=== PATIENT | male | born 1935 | race Caucasian/White ===

== ENCOUNTER 2016-12-20 20:16 | Inpatient (IN) | payer OTHER ==
[~2016-12-20] VITALS: Ht 180.3 cm; Wt 74.8 kg
--- NOTE | ~2016-12-20 | H ---
[facility] [place] [address] HISTORY AND PHYSICAL Name: AILEEN GARNICA Room #: 312-P [facility] IN M.R.#: [id number] Admission: 12/20/16 Attend Phys: Linwood Taylor Discharge: Date of : 31 Report #: [id number] THIS REPORT FOR: //name// CC: Maurice Meehan DATE OF SERVICE: 12/21/2016 CHIEF COMPLAINT: Shortness of breath. HISTORY OF PRESENT ILLNESS: The patient is an 81-year-old gentleman with COPD, who came back to the Emergency Room with a several day history of shortness of breath. Symptoms began about 5 or 7 days ago. He went to the Emergency Room this past Sunday and was diagnosed with COPD exacerbation. He was given antibiotics and discharged home. He said the last 2 days, he has been very lethargic and said he has been "sleeping 20 hours a day." He normally wears 3 liters of oxygen at home, but had increased it to about 4 liters with a mild exertion. He reports using his nebulizer every 4 hours; however, things did not improve and therefore, he returned to the Emergency Room yesterday and has been admitted. PAST MEDICAL HISTORY: COPD, prostate cancer, remote coronary artery disease with remote history of cardiac stent, hypertension. PAST SURGICAL HISTORY: As above. FAMILY HISTORY: Noncontributory. SOCIAL HISTORY: No current alcohol or tobacco use. ALLERGIES: PENICILLIN, IODINE, CODEINE. He says PREDNISONE caused itching. MEDICATIONS: DuoNeb, Mucinex, Flonase, azithromycin, lisinopril, Advair, Zocor, aspirin, potassium, Lasix. REVIEW OF SYSTEMS: He denies headache, chest pain, shortness of breath, abdominal pain, dysuria, myalgias, syncope, fall. PHYSICAL EXAMINATION: VITAL SIGNS: Temperature 36.3, pulse 69, respirations 20, blood pressure 140/65, O2 sat 97% on 3 liters nasal cannula. GENERAL: He is awake and alert, in no distress. HEAD AND NECK: Unremarkable. LUNGS: Clear with no wheezing. HEART: Regular, without murmur. ABDOMEN: Soft, normoactive bowel sounds. EXTREMITIES: No edema. [facility] [address] [place] [address] HISTORY AND PHYSICAL Name: AILEEN GARNICA Room #: 312-P [facility] IN [facility].#: [id number] Admission: 12/20/16 Attend Phys: Linwood Taylor Discharge: Date of : 33 Report #: [id number] LABORATORY DATA: Reviewed electronically. Chest x-ray showed some atelectasis. ASSESSMENT: 1. Chronic obstructive pulmonary disease exacerbation. 2. Hypertension. 3. Coronary artery disease. PLAN: I will continue his medications from home and exception of adjusting his potassium, antibiotics, steroids, nebulized and pulmonary treatments to continue with physical therapy, Lovenox for DVT prophylaxis. <ELECTRONICALLY SIGNED> By: Edilson Godinez MD 12/22/16 1019 1031 Edilson Godinez MD /tan
--- NOTE | ~2016-12-20 | EKG ---
[address] [address] ELECTROCARDIOGRAM REPORT Name: AILEEN GARNICA Room #: 312-P ADM IN M.R.#: [id number] Admission: 12/20/16 Attend Phys: Linwood Taylor Discharge: Date of : 31 Report #: [id number] THIS REPORT FOR: //name// 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 : 1935 Requested By: Josh Riojas Order Number: [id number] MD: Brett Grossman Measurements Intervals [place] Rate: 69 P: 76 MO: 213 QRS: 85 QRSD: 110 T: 60 QT: 413 QTc: 443 Interpretive Statements Sinus rhythm Borderline prolonged [place] interval RSR' in V1 or V2, probably normal variant Compared to ECG 12/20/2016 21:01:16 Sinus rhythm has replaced atrial flutter Electronically Signed On 12-25-2016 9:10:51 CDT by Brett Grossman [email or web address] <ELECTRONICALLY SIGNED> By: Brett Grossman MD, [facility] 12/25/16 0910 0819 0819 Brett Grossman MD, [facility] /EPI
--- NOTE | ~2016-12-20 | D ---
[facility] [place] [address] DISCHARGE SUMMARY Name: AILEEN GARNICA Room #: 312-P [facility] IN M.R.#: [id number] Admission: 12/20/16 Attend Phys: Linwood Taylor Discharge: 12/25/16 Date of : 33 Report #: [id number] THIS REPORT FOR: //name// CC: Maurice Meehan FINAL DIAGNOSES: 1. Acute exacerbation of chronic obstructive pulmonary disease. 2. Acute bronchitis. 3. Paroxysmal atrial fibrillation. 4. Hypertension. 5. Senile debility. HOSPITAL COURSE: The patient was admitted with cough, congestion and shortness of breath. Initial working diagnosis was pneumonia. However, his chest x-ray really did not show significant infiltrate. He was treated for exacerbation of COPD and acute bronchitis. Steroids, nebulized treatments and antibiotics were ordered. He made slow and steady improvement. I offered post-acute rehabilitation care, which he declined. He worked with physical therapy. On the , he developed paroxysmal atrial fibrillation. He was seen by Dr. Riojas. Toprol was added and then he was converted to Xarelto. He had no other interval complication. Plan was for him to discontinue aspirin. PHYSICAL EXAMINATION: GENERAL: On the day of discharge, he was awake and alert, in no distress. VITAL SIGNS: Stable, telemetry was revealing sinus rhythm. LUNGS: Distant, but no wheezing. HEART: Regular. ABDOMEN: Soft, normoactive bowel sounds. EXTREMITIES: No edema. DISPOSITION: To be discharged to home with diet and activity as tolerated. He will resume all home medications plus Toprol-XL 25 mg a day, Xarelto 20 mg a day, Zithromax for 5 more days, a slow dexamethasone taper to a daily dose and he is to discontinue aspirin. Follow up with Dr. Meehan in 2-4 weeks, Dr. Riojas in a month, and Dr. Mendoza for pulmonary in a month. <ELECTRONICALLY SIGNED> By: Edilson Godinez MD 12/26/16 0900 0859 0926 Edilson Godinez MD /nt
--- NOTE | ~2016-12-20 | EKG ---
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 : 1935 Requested By: Edilson Godinez Order Number: [id number] MD: Brett Grossman Measurements Intervals [place] Rate: 122 P: [place]: QRS: 93 QRSD: 107 T: -46 QT: 328 QTc: 468 Interpretive Statements Atrial flutter with a rapid ventricular response Ventricular premature complex Right ventricular conduction delay Nonspecific ST and T wave abnormality Baseline wander in lead(s) V2 Compared to ECG 12/20/2016 21:01:16 Atrial flutter is now present Ventricular premature complex(es) now present Electronically Signed On 12-24-2016 15:02:12 CDT by Brett Grossman [email or web address] <ELECTRONICALLY SIGNED> By: Brett Grossman MD, [facility] 12/24/16 1502 1003 1003 Brett Grossman MD, [facility] /EPI
--- NOTE | ~2016-12-20 | HC ---
[facility] [place] [address] CONSULTATION Name: AILEEN GARNICA Room #: 312-P [facility] IN ..#: [id number] Admission: 12/20/16 Attend Phys: Linwood Taylor Discharge: Date of : 33 Report #: [id number] THIS REPORT FOR: //name// CC: Maurice Meehan HISTORY OF PRESENT ILLNESS: The patient is an 81-year-old male patient of Dr. Carlo Meehan, admitted by Dr. Meehan and Dr. Godinez for chronic obstructive pulmonary disease exacerbation and shortness of breath. He apparently had had a couple of visits to the emergency room prior to his admission. Longstanding COPD with tobacco use, but he quit 2 or 3 years ago. I am asked to evaluate for what he had was some paroxysmal AFib with a rapid ventricular response this morning of 140s. There was a period of bigeminy prior to that. He was asymptomatic with this AFib. He has currently converted back to sinus rhythm. He has not had significant or elevated history of chest pain or pressure, apparently has not seen Cardiology for some time. CURRENT MEDICATIONS: Cefuroxime 500 b.i.d., Zithromax p.o., famciclovir, aspirin, lisinopril 2.5, enoxaparin 40. We will go full dose on the enoxaparin because of the atrial fibrillation now for true therapeutic anticoagulation, Lasix p.o. 40, dexamethasone 2 t.i.d. His home medications are DuoNeb, Mucinex, Zithromax, lisinopril, Advil, Zocor, aspirin, potassium, Lasix. PAST MEDICAL HISTORY: Positive for coronary artery disease. He showed me stent cards, 3 circumflex stents placed in 2004 and then an acute occlusion in the same vessel in 2007 with one Cypher drug-eluting stent placed 2.5 mm stent by 13, I believe. He has had no recent stress testing, he says. He denies some questionable chest pressure at times, but mostly this is a pulmonary issue. No significant surgical history except for the stent placement, hypertension, hypercholesterolemia, prostate cancer, COPD. ALLERGIES: CODEINE, IODINE, PENICILLIN, and PREDNISONE, although I might question that since he is on dexamethasone. 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 He has been single his whole life. He has a significant other he lives with, quit tobacco 3 years ago. No significant alcohol intake. FAMILY HISTORY: Negative for premature coronary disease. REVIEW OF SYSTEMS: Negative except for some occasional nocturia. LABORATORY DATA: Potassium 4.5. Creatinine 0.8. Total protein 7.4. Troponin is negative, proBNP 496. H 12.4 and 36.6, white count 9000 and platelets 178. Chest x-ray shows air trapping, focal areas of atelectasis in right middle lobe, minor fissure, otherwise no new infiltrate or pneumothorax was noted. That was today's x-ray. [address] [address] CONSULTATION Name: AILEEN GARNICA Room #: 312-P ADM IN M.R.#: [id number] Admission: 12/20/16 Attend Phys: Linwood Taylor Discharge: Date of : 33 Report #: [id number] PHYSICAL EXAMINATION: GENERAL: He is pleasant and alert. VITAL SIGNS: Blood pressure 110/75, currently pulse is 70s and sinus. He did have some AFib 140s for a short period of time, spontaneously converted. HEENT: Eyes reveal xanthelasmas. Pharynx is clear. NECK: Shows preserved upstrokes without JVD or bruits. LUNGS: Prolonged expiratory phase, decreased excursion. CARDIOVASCULAR: Distant heart tones, S1, S2. ABDOMEN: Slightly protuberant, nontender. EXTREMITIES: Reveal trace of nonpitting edema. NEUROLOGIC: Nonfocal. SKIN: Warm and dry without xanthoma or ulcer. MUSCULOSKELETAL: Generalized arthritic changes. I did not ambulate him. ASSESSMENT: 1. Paroxysmal atrial fibrillation with rapid ventricular response, asymptomatic. 2. Coronary artery disease with history of stents times 4, Cypher, to the circumflex, 2004 and 2007. 3. Hypertension. 4. Hypercholesterolemia. 5. Chronic obstructive pulmonary disease exacerbation. 6. Degenerative joint disease. 7. History of prostate cancer. RECOMMENDATIONS AND PLAN: I would restart his statin. I would check lipids. We will check echo Doppler on Sunday morning. He will need anticoagulation, probably long-term, possibly a novel agent, but I would go Lovenox currently mg/kg subq b.i.d. with normal renal function. We will use a selective beta steffany currently, Toprol 50. If we have recurrence, one would consider amiodarone addition. I will repeat EKG in the morning. I will follow with you. Thank you for asking me to assist in the care of this patient. <ELECTRONICALLY SIGNED> By: Josh Riojas MD, FACC 12/25/16 0815 1248 99 Josh Riojas MD, FACC /nt
--- NOTE | ~2016-12-20 | EKG ---
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 Editor: [id number] : 1935 Requested By: Oscar Jordan Order Number: [id number] MD: Brett Grossman Measurements Intervals [place] Rate: 66 P: 84 ND: 216 QRS: 86 QRSD: 106 T: 60 QT: 399 QTc: 418 Interpretive Statements Sinus rhythm Borderline prolonged ND interval RSR' in V1 or V2, probably normal variant Compared to ECG 12/16/2016 11:42:10 premature ventricular complexes no longer present Electronically Signed On 12-21-2016 8:58:47 CDT by Brett Grossman [email or web address] <ELECTRONICALLY SIGNED> By: Brett Grossman MD, [facility] 12/21/16 0858 00 00 Brett Grossman MD, [facility] /EPI
[~2016-12-20 20:16] MED LIST: ADVAIR 500-501 EACH INH; ALBUTEROL2.5 MG/3 M INH; AZITHROMYCIN 2250 MG PO; DEXAMETHASONE 22 M1 PO; DEXAMETHASONE 22 MG GT; DUONEB 2.5-0.5 M3 ML INH; FLONASE 0.05%50 MCG NASAL; LEVAQUIN 500 M500 M1 PO; LEVAQUIN 500 M500 M2; LISINOPRIL2.5 M1 PO; MUCINEX TA600 MG/TA1 PO; SPIRIVA18 MCG
[2016-12-20 20:17] VITALS: BP 132/102
[2016-12-20 21:32] LABS: ABSOLUTE NEUTROPHILS 5.5 thou/uL (1.4-8.2); BASOPHILS 0.8 % (0.0-2.0); EOSINOPHILS 3.1 % (0.0-3.0); HEMOGLOBIN 14.4 gm/dL (14.0-18.0); LYMPHOCYTES 14.6 % (24.0-44.0); MCH 30.9 pg (26.0-34.0); MCHC 33.4 g/dL (28.0-37.0); MCV 92.6 fL (80.0-100.0); MONOCYTES 7.7 % (1.0-8.0); PLATELET COUNT 242 thou/uL (150-400); POLYS 73.8 % (36.0-66.0); RBC 4.64 mil/uL (4.50-6.00); RDW 15.3 % (10.5-14.5); WBC 7.4 thou/uL (4.0-11.0)
[2016-12-20 21:33] LABS: MANUAL DIFF NO
[2016-12-20 21:37] LABS: CALCIUM 9.5 mg/dL (8.5-10.1); CREATININE 0.8 mg/dL (0.7-1.3); POTASSIUM 5.2 mmol/L (3.5-5.1)
[2016-12-20 21:46] LABS: APTT 21.2 Seconds (24.5-32.8)
[2016-12-20 21:55] LABS: ALBUMIN 3.3 g/dL (3.4-5.0); CK-MB MASS 2.3 ng/mL (<0.5-3.6); MAGNESIUM 1.9 mg/dL (1.8-2.4); TOTAL BILIRUBIN 0.6 mg/dL (<0.1-1.0); TOTAL PROTEIN 7.4 g/dL (6.4-8.2); TROPONIN-I 0.04 ng/mL (<0.04-0.07)
[2016-12-20 21:57] LABS: ABG SAMPLE TYPE ARTERIAL; BE(vivo) 0 mmol/L (-2 to +3); LACTATE 1.07 mmol/L (0.5-2.0); O2(CT) 19.2 mL/dL (15.0-23.0); O2Hb 96.2 % (92.0-98.0); PCO2 47.5 mmHg (35.0-45.0); PO2 96.5 mmHg (80.0-100.0); STICK SITE L.RADIAL; pH 7.356 (7.360-7.450); tCO2 27.4 mmol/L (24.0-30.0)
[2016-12-21] VITALS (7 sets, daily range): BP systolic 115–154; BP diastolic 55–82
[2016-12-21] MEDS ORDERED: FLONASE 0.05%50 MCG NASAL (01:33)
[2016-12-21] MEDS ORDERED: MUCINEX TA600 MG/TA2 PO (01:35)
[2016-12-21] MEDS ORDERED: DUONEB 2.5-0.5 M3 ML INH (01:37)
[2016-12-21] MEDS ORDERED: SIMVASTATIN40 MG PO (01:42)
[2016-12-21] MEDS ORDERED: ASPIR 8181 M1 PO (01:43)
[2016-12-21] MEDS ORDERED: KLOR-CON 1010 MEQ PO (01:44)
[2016-12-21] MEDS ORDERED: LASIX 40 MG TAB40 MG PO (01:46)
[2016-12-22 04:33] VITALS: BP 104/63
[2016-12-22 06:15] LABS: CALCIUM 9.5 mg/dL (8.5-10.1); CREATININE 0.9 mg/dL (0.7-1.3); POTASSIUM 4.4 mmol/L (3.5-5.1)
[2016-12-22 09:40] VITALS: BP 146/48
[2016-12-22 16:07] VITALS: BP 107/58
[2016-12-22 20:40] VITALS: BP 120/61
[2016-12-23 04:50] VITALS: BP 103/52
[2016-12-23 05:19] LABS: HEMATOCRIT 36.6 % (42.0-52.0); MCH 30.6 pg (26.0-34.0); MCHC 33.8 g/dL (28.0-37.0); MCV 90.6 fL (80.0-100.0); RBC 4.04 mil/uL (4.50-6.00)
[2016-12-23 05:29] LABS: HEMOGLOBIN 12.4 gm/dL (14.0-18.0)
[2016-12-23 05:30] LABS: CREATININE 0.8 mg/dL (0.7-1.3); POTASSIUM 4.5 mmol/L (3.5-5.1)
[2016-12-23 08:00] VITALS: BP 110/75
[2016-12-23] MEDS ORDERED: XALATAN2.5 M1 OPHTHALMIC (14:27)
[2016-12-23 16:00] VITALS: BP 88/48
[2016-12-23] MEDS ORDERED: COMBIVENT RESPIM4 GM IH (18:22)
[2016-12-23 20:00] VITALS: BP 111/59
[2016-12-24 04:00] VITALS: BP 120/49
[2016-12-24 08:00] VITALS: BP 120/58
[2016-12-24 16:00] VITALS: BP 119/71
[2016-12-24 19:43] VITALS: BP 113/53
[2016-12-25 04:27] VITALS: BP 122/64
[2016-12-25 06:59] LABS: HEMATOCRIT 39.1 % (42.0-52.0); HEMOGLOBIN 12.9 gm/dL (14.0-18.0); MCH 30.2 pg (26.0-34.0); MCHC 33.1 g/dL (28.0-37.0); MCV 91.3 fL (80.0-100.0); RBC 4.28 mil/uL (4.50-6.00); RDW 15.3 % (10.5-14.5); WBC 12.4 thou/uL (4.0-11.0)
[2016-12-25 07:09] LABS: CALCIUM 8.9 mg/dL (8.5-10.1); CREATININE 0.9 mg/dL (0.7-1.3); POTASSIUM 4.7 mmol/L (3.5-5.1)
[2016-12-25] MEDS ORDERED: AZITHROMYCIN 2250 MG PO (08:19)
[2016-12-25] MEDS ORDERED: METOPROLOL SUCC25 M1 PO (08:20)
[2016-12-25] MEDS ORDERED: XARELTO20 MG PO (08:20)
[2016-12-25] MEDS ORDERED: DEXAMETHASONE 22 M1 PO (08:21)
[2016-12-25 08:34] VITALS: BP 132/81
[2016-12-25 10:27] VITALS: BP 132/81
== END 2016-12-25 19:00 | disposition home or self-care (01) | DRG 189 ==
LOC: ER 20:16 → EROBS 22:45 → 3N 22:45
PROVIDERS: Emergency Medicine; Internal Medicine Geriatric Medicine
DX: J96.20 Acute and chronic respiratory failure, unspecified whether with hypoxia or hypercapnia (principal); J44.1 Chronic obstructive pulmonary disease with (acute) exacerbation; J44.0 Chronic obstructive pulmonary disease with (acute) lower respiratory infection; I25.10 Atherosclerotic heart disease of native coronary artery without angina pectoris; I10 Essential (primary) hypertension; E78.00 Pure hypercholesterolemia, unspecified; I48.0 Paroxysmal atrial fibrillation; M19.90 Unspecified osteoarthritis, unspecified site; R54 Age-related physical debility; J20.9 Acute bronchitis, unspecified; K12.1 Other forms of stomatitis; Z95.5 Presence of coronary angioplasty implant and graft; Z88.6 Allergy status to analgesic agent; Z88.0 Allergy status to penicillin; Z88.8 Allergy status to other drugs, medicaments and biological substances; Z85.46 Personal history of malignant neoplasm of prostate; Z91.041 Radiographic dye allergy status; Z87.891 Personal history of nicotine dependence
CPT/HCPCS: 10096

== ENCOUNTER 2017-01-09 22:22 | Inpatient (IN) | payer OTHER ==
[~2017-01-09] VITALS: Ht 27.9 cm; Wt 77.6 kg
--- NOTE | ~2017-01-09 | EKG ---
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
--- NOTE | ~2017-01-09 | D ---
[facility] [place] [address] DISCHARGE SUMMARY Name: AILEEN GARNICA Room #: 301-I ADM IN M.R.#: [id number] Admission: 01/10/17 Attend Phys: Edilson Godinez MD Discharge: Date of : 33 Report #: [id number] THIS REPORT FOR: //name// CC: Maurice Godinez FINAL DIAGNOSES: 1. Chronic obstructive pulmonary disease exacerbation. 2. Paroxysmal atrial fibrillation. 3. Chronic vertebral compression fracture. HOSPITAL COURSE: The patient was admitted with weakness and shortness of breath. He had some fluid overload and was treated for COPD exacerbation and diuretics. He was complaining of back pain and x-rays showed chronic vertebral compression fractures. He was slow to make progress; however, he refused to consider skilled or rehabilitation efforts and wanted to go home. PHYSICAL EXAMINATION: On the day of discharge: GENERAL: He was awake and alert. VITAL SIGNS: Stable. CHEST: Distant but clear. HEART: . ABDOMEN: Soft, normoactive bowel sounds. EXTREMITIES: No edema. DISPOSITION: To be discharged to home. Diet and activity as tolerated. Med changes are Coreg 6.25 mg b.i.d., Lasix 40 mg daily as needed for edema, tramadol as needed for pain and he is to continue his inhalers, Mucinex, Xarelto. Follow up with Dr. Meehan in 2 weeks. He will have home health. <ELECTRONICALLY SIGNED> By: Edilson Godinez MD 01/16/17 1505 1031 1229 Edilson Godinez MD /tan
--- NOTE | ~2017-01-09 | 2DMMODE ---
[facility] [address] [place] [address] 2 D/M-MODE ECHOCARDIOGRAM Name: NAHUNAILEEN Joshi Room #: 301-I ADM IN [facility]#: [id number] Admission: 01/10/17 Attend Phys: Linwood Quezada Discharge: Date of : 31 Date of Service: 01/10/17 1535 Report #: [id number] THIS REPORT FOR: //name// APPROVED REPORT Study performed: 01/10/2017 12:49:26 EXAM: Comprehensive 2D, Doppler, and color-flow Echocardiogram Patient Location: In-Patient Room #: 301 Blood Pressure: 117/59 mmHg Other Information Study Quality: Technically Difficult Indications COPD CAD Hypertension/HDD 2D Dimensions RVDd: 31.97 mm LVEF(%): 71.96 (>50%) IVSd: 10.62 (7-11mm) LVOT Diam: 19.94 (18-24mm) LVDd: 29.40 mm PWd: 10.52 (7-11mm) Ascending Ao: 28.76 (22-36mm) LVDs: 17.72 (25-40mm) Aortic Root: 38.94 mm IVC: 14.00 mm Arriola's LVEF: 71.96 % Volumes Left Atrial Volume (Systole) Single Plane 4CH: 47.80 mL Single Plane 2CH: 35.22 mL LA ESV Index: 22.00 mL/m2 Aortic Valve AoV Peak Melo.: 2.83 m/s AO Peak Gr.: 32.14 mmHg LVOT Max P.88 mmHg AO Mean Gr.: 17.27 mmHg AO V2 Mean: 1.97 m/s LVOT Max V: 1.49 m/s AO V2 VTI: 50.48 cm EVA Vmax: 1.64 cm2 [facility] [place] [address] 2 D/M-MODE ECHOCARDIOGRAM Name: AILEEN GARNICA Room #: 301-I [facility] IN ..#: [id number] Admission: 01/10/17 Attend Phys: Linwood Quezada Discharge: Date of : 31 Date of Service: 01/10/17 1535 Report #: [id number] Vmax: 3.59 m/s AI Isabela: 2.20 m/s2 AI PHT: 472.79 ms Mitral Valve E/A Ratio: 0.5 MV Decel. Time: 268.98 ms MV E Max Melo.: 0.71 m/s MV A Melo.: 1.48 m/s MV PHT: 78.00 ms IVRT: 133.79 ms Pulmonary Valve PV Peak Melo.: 1.59 m/s PV Peak Gr.: 10.07 mmHg Pulmonary Vein P Vein S: 38.5 m/s P Vein A: 18.53 m/s P Vein D: 27.0 m/s P Vein A Dur.: 124.6 msec Tricuspid Valve TR Peak Melo.: 2.95 m/s RAP Estimate: 5.00 mmHg TR Peak Gr.: 34.86 mmHg Left Ventricle The left ventricle is normal size. There is normal LV segmental wall motion. Mild concentric left ventricular hypertrophy. Left ventricular systolic function is hyperdynamic. LVEF is 70%. Mild diastolic dysfunction is present (impaired relaxation pattern). Right Ventricle The right ventricle is normal size. The right ventricular systolic function is normal. Atria The left atrium size is normal. The right atrium size is normal. Aortic Valve Aortic valve leaflets are mildly sclerotic with decreased opening. Trace aortic regurgitation. Mild aortic stenosis. Mitral Valve The mitral valve is normal in structure. There is no mitral valve regurgitation noted. No evidence of mitral valve stenosis. [facility] [address] [place] [address] 2 D/M-MODE ECHOCARDIOGRAM Name: AILEEN GARNICA Room #: 301-I [facility] IN .R.#: [id number] Admission: 01/10/17 Attend Phys: Linwood Quezada Discharge: Date of : 31 Date of Service: 01/10/17 1535 Report #: [id number] Tricuspid Valve The tricuspid valve is normal in structure. Mild tricuspid regurgitation. Pulmonic Valve Pulmonic valve is not well visualized. Trace pulmonic regurgitation. Great Vessels The aortic root is normal in size. IVC is normal in size and collapses >50% with inspiration. Pericardium There is no pericardial effusion. There is no pleural effusion. <Conclusion> The left ventricle is normal size. Mild concentric left ventricular hypertrophy. Left ventricular systolic function is hyperdynamic. Mild diastolic dysfunction is present (impaired relaxation pattern). The right ventricle is normal size. The left atrium size is normal. Mild aortic stenosis. The mitral valve is normal in structure. Mild tricuspid regurgitation. <ELECTRONICALLY SIGNED> By: Gab Holguin MD 01/10/17 1535 1535 1535 Gab Holguin MD /INF
--- NOTE | ~2017-01-09 | H ---
[facility] [address] [place] [address] HISTORY AND PHYSICAL Name: AILEEN GARNICA Room #: 301-I ADM IN .R.#: [id number] Admission: 01/10/17 Attend Phys: Edilson Godinez MD Discharge: Date of : 33 Report #: [id number] THIS REPORT FOR: //name// CC: Maurice Godinez DATE OF SERVICE: 01/10/2017 CHIEF COMPLAINT: Weakness and shortness of breath. HISTORY OF PRESENT ILLNESS: The patient is an 81-year-old gentleman with multiple medical problems, came back to the Emergency Room with weakness and shortness of breath. He has just been hospitalized recently a couple of times for COPD exacerbation and prior to that, he was hospitalized at [facility]. He was feeling weak and was unable to stand or get up from his commode. He said it took him a couple of hours to come down the 2 flights of stairs from the third floor. card and come in the Emergency Room. He was unable to get up due to appointment yesterday afternoon. He reported a little bit of swelling in his feet and a little more shortness of breath. He denied any chest pain. He had a recent diagnosis of paroxysmal atrial fibrillation during last hospitalization and was started on Xarelto. PAST MEDICAL HISTORY: COPD with chronic O2 dependence at 3 liters nasal cannula, prostate cancer, paroxysmal atrial fibrillation, hypertension, coronary artery disease with prior history of cardiac stent. PAST SURGICAL HISTORY: As above. FAMILY HISTORY: Noncontributory. SOCIAL HISTORY: He lives at home with one of his sons. ALLERGIES: CODEINE, IODINE, PENICILLIN and PREDNISONE. MEDICATIONS: Lisinopril, Advair, Flonase nasal spray, Mucinex, DuoNeb, Zocor, potassium, Lasix. REVIEW OF SYSTEMS: He denies headache, chest pain, abdominal pain, nausea, vomiting, diarrhea, constipation, dysuria, syncope. Does report bruising on his abdominal wall from Lovenox injections on last admit. PHYSICAL EXAMINATION: VITAL SIGNS: Temperature 97.6, pulse 58, respirations 16, blood pressure 117/59, O2 sat 95% to 97% on 3 liters. GENERAL: He is awake and alert, in no distress. HEENT: Unremarkable. He uses pursed lip breathing with activity. [facility] [address] [place] [address] HISTORY AND PHYSICAL Name: AILEEN GARNICA Room #: 301-I [facility] IN .R.#: [id number] Admission: 01/10/17 Attend Phys: Edilson Godinez MD Discharge: Date of : 31 Report #: [id number] NECK: No JVD. LUNGS: Distant breath sounds, no wheezing. HEART: Regular, no murmur. ABDOMEN: Obese, soft, normoactive bowel sounds, bridging of abdominal wall. EXTREMITIES: No cyanosis or clubbing. There is 1+ pedal edema. NEUROLOGIC: Global strength 4/5 throughout. His chest x-rays suggested some possible loculated pleural effusion. His BNP was elevated. ASSESSMENT: 1. Acute on chronic diastolic congestive heart failure. 2. Paroxysmal atrial fibrillation. 3. Chronic obstructive pulmonary disease, O2 dependent. 4. Senile debility. PLAN: I will ask for an echocardiogram to establish his ejection fraction, Lasix to be restarted. He continues with Xarelto, which we will cover for DVT prophylaxis. Continue pulmonary respiratory treatments and physical therapy. He declines to consider rehabilitation skill and/or home health. <ELECTRONICALLY SIGNED> By: Edilson Godinez MD 01/11/17 1120 1307 1408 Edilson Godinez MD /nt
[~2017-01-09 22:22] MED LIST changes: +ASPIR 8181 M1 PO; +COMBIVENT RESPIM4 GM IH; +KLOR-CON 1010 MEQ PO; +LASIX 40 MG TAB40 MG PO; +METOPROLOL SUCC25 M1 PO; +MUCINEX TA600 MG/TA2 PO; +SIMVASTATIN40 MG PO; +XALATAN2.5 M1 OPHTHALMIC; +XARELTO20 MG PO
[2017-01-09 22:23] VITALS: BP 85/62
[2017-01-09 22:54] LABS: ABG SAMPLE TYPE ARTERIAL; BE(vivo) 3.4 mmol/L (-2 to +3); HCO3 28.1 mmol/L (22.0-26.0); LACTATE 1.42 mmol/L (0.5-2.0); O2(CT) 19.5 mL/dL (15.0-23.0); O2Hb 96.6 % (92.0-98.0); PCO2 42.7 mmHg (35.0-45.0); PO2 103.1 mmHg (80.0-100.0); STICK SITE L.BRACHIAL; pH 7.436 (7.360-7.450); sO2 97.9 % (92.0-98.0); tCO2 29.4 mmol/L (24.0-30.0)
[2017-01-09 23:24] LABS: HEMOGLOBIN 13.6 gm/dL (14.0-18.0); MCH 30.1 pg (26.0-34.0); MCHC 32.5 g/dL (28.0-37.0); MCV 92.8 fL (80.0-100.0); PLATELET COUNT 133 thou/uL (150-400); RBC 4.52 mil/uL (4.50-6.00); RDW 15.8 % (10.5-14.5); WBC 11.9 thou/uL (4.0-11.0)
[2017-01-09 23:32] LABS: CALCIUM 8.9 mg/dL (8.5-10.1); CREATININE 1.2 mg/dL (0.7-1.3); POTASSIUM 4.7 mmol/L (3.5-5.1)
[2017-01-09 23:34] LABS: MANUAL DIFF YES
[2017-01-10 00:06] LABS: ABSOLUTE NEUTROPHILS 10.2 thou/uL (1.4-8.2); TOTAL CELL COUNT 100
[2017-01-10 01:08] VITALS: BP 121/54
[2017-01-10 01:20] VITALS: BP 113/62
[2017-01-10] MEDS ORDERED: CARVEDILOL3.125 MG PO (02:04)
[2017-01-10] MEDS ORDERED: XARELTO20 MG PO ×2 (02:08→02:12)
[2017-01-10] MEDS ORDERED: COMBIVENT RESPIM4 GM IH ×2 (02:09→02:12)
[2017-01-10 07:15] VITALS: BP 117/59
[2017-01-10 19:42] VITALS: BP 150/72
[2017-01-11 04:19] VITALS: BP 128/63
[2017-01-11 05:46] LABS: HEMATOCRIT 39.8 % (42.0-52.0); HEMOGLOBIN 13.4 gm/dL (14.0-18.0); MCH 30.8 pg (26.0-34.0); MCHC 33.6 g/dL (28.0-37.0); MCV 91.5 fL (80.0-100.0); RBC 4.35 mil/uL (4.50-6.00); RDW 15.5 % (10.5-14.5); WBC 10.4 thou/uL (4.0-11.0)
[2017-01-11 05:59] LABS: CALCIUM 9.5 mg/dL (8.5-10.1); CREATININE 0.8 mg/dL (0.7-1.3); POTASSIUM 4.4 mmol/L (3.5-5.1)
[2017-01-11 07:19] VITALS: BP 132/54
[2017-01-11 16:24] VITALS: BP 140/65
[2017-01-11 20:12] VITALS: BP 130/69
[2017-01-12 06:03] LABS: CALCIUM 9.4 mg/dL (8.5-10.1); CREATININE 0.8 mg/dL (0.7-1.3); POTASSIUM 4.2 mmol/L (3.5-5.1)
[2017-01-12 07:43] VITALS: BP 153/64
[2017-01-12 15:11] VITALS: BP 136/79
[2017-01-12 18:17] VITALS: BP 122/66
[2017-01-12 19:30] VITALS: BP 110/87
[2017-01-13 03:10] VITALS: BP 110/63
[2017-01-13 09:09] VITALS: BP 107/61
[2017-01-13 17:38] VITALS: BP 112/60
[2017-01-13 19:30] VITALS: BP 118/61
[2017-01-14 00:01] VITALS: BP 107/57
[2017-01-14 03:30] VITALS: BP 109/61
[2017-01-14 17:47] VITALS: BP 124/63
[2017-01-14 19:44] VITALS: BP 132/56
[2017-01-15 04:16] VITALS: BP 109/52
[2017-01-15 08:35] VITALS: BP 123/51
[2017-01-15 16:08] VITALS: BP 123/51
[2017-01-15 19:55] VITALS: BP 122/57
[2017-01-16 03:42] VITALS: BP 119/58
[2017-01-16 07:48] LABS: ANION GAP < 0 mmol/L (7-16); BUN 19 mg/dL (7-18); CALCIUM 9.2 mg/dL (8.5-10.1); CHLORIDE 97 mmol/L (98-107); CO2 41 mmol/L (21-32); CREATININE 0.7 mg/dL (0.7-1.3); GLUCOSE 190 mg/dL (74-106); POTASSIUM 3.5 mmol/L (3.5-5.1); SODIUM 136 mmol/L (136-145)
[2017-01-16 08:07] VITALS: BP 112/52
[2017-01-16] MEDS ORDERED: TRAMADOL 50 MG50 MG PO (10:25)
[2017-01-16] MEDS ORDERED: MUCINEX TA600 MG/TA1 PO (10:25)
[2017-01-16] MEDS ORDERED: CARVEDILOL3.125 MG PO (10:25)
[2017-01-16] MEDS ORDERED: FLONASE 0.05%50 MCG NASAL (10:25)
[2017-01-16] MEDS ORDERED: SSD CREAM 1% 5050 GM TOP (10:26)
[2017-01-16] MEDS ORDERED: LASIX 40 MG TAB40 M2 PO (10:29)
[2017-01-16 10:45] VITALS: BP 123/51
[2017-01-16 11:38] VITALS: BP 123/51
[2017-01-16 17:06] VITALS: BP 125/66
== END 2017-01-16 21:00 | disposition home health service (06) | DRG 308 ==
LOC: ER 22:22 → EROBS 01-10 00:28 → 3N 01-10 00:28
PROVIDERS: Emergency Medicine; Internal Medicine Geriatric Medicine
DX: I48.0 Paroxysmal atrial fibrillation (principal); I50.33 Acute on chronic diastolic (congestive) heart failure; J44.1 Chronic obstructive pulmonary disease with (acute) exacerbation; M48.50XA Collapsed vertebra, not elsewhere classified, site unspecified, initial encounter for fracture; I11.0 Hypertensive heart disease with heart failure; J98.01 Acute bronchospasm; I25.10 Atherosclerotic heart disease of native coronary artery without angina pectoris; Z85.46 Personal history of malignant neoplasm of prostate; Z95.5 Presence of coronary angioplasty implant and graft; Z88.0 Allergy status to penicillin; Z88.6 Allergy status to analgesic agent; Z91.041 Radiographic dye allergy status; Z87.891 Personal history of nicotine dependence; Z99.81 Dependence on supplemental oxygen
CPT/HCPCS: 10096

== ENCOUNTER 2017-01-21 20:14 | Inpatient (IN) | payer OTHER ==
[~2017-01-21] VITALS: Ht 180.3 cm; Wt 78.9 kg
--- NOTE | ~2017-01-21 | H ---
[facility] [place] [address] HISTORY AND PHYSICAL Name: AILEEN GARNICA Room #: 446-P ADM IN M.R.#: [id number] Admission: 01/21/17 Attend Phys: Dottie Arroyo MD Discharge: Date of : 33 Report #: [id number] THIS REPORT FOR: //name// CC: Maurice Arroyo DATE OF SERVICE: 01/22/2017 CHIEF COMPLAINT: Shortness of breath. HISTORY OF PRESENT ILLNESS: The patient is an 81-year-old gentleman with COPD and CHF, came back to the Emergency Room with shortness of breath. He was just discharged from the hospital with very similar symptoms and has had several admissions over the last couple of months. He said at home, he just complained of being short of breath. He slept for 3 days and was weak. He has been talking about getting a stairlift installed in his house, but that has still not been done. He has refused home health, rehabs new referrals in the past. It is not clear whether he was taking his medication, he was discharged from the last hospital stay. He complained of nasal congestion, but did not use his Flonase that was given to him last admit. PAST MEDICAL HISTORY: COPD, prostate cancer, coronary artery disease with cardiac catheterization and stent previously, diastolic congestive heart failure, atrial fibrillation now on anticoagulation. PAST SURGICAL HISTORY: As above. FAMILY HISTORY: Noncontributory. SOCIAL HISTORY: Remote 50-hnav-lvld history of smoking, but none recently. No alcohol use. ALLERGIES: PENICILLIN, IODINE, CODEINE, PREDNISONE. MEDICATIONS: Xarelto 20 mg, tramadol, Mucinex, Flonase, Coreg 3.125 mg twice a day, Lasix 40 mg a day. REVIEW OF SYSTEMS: He denies headache, chest pain, shortness of breath, myalgias, syncope or fall. OBJECTIVE: VITAL SIGNS: Temperature 36.7, pulse 59, respirations 24, blood pressure 129/64, O2 sat 97% on 3 liters. GENERAL: He is awake and alert, in no distress. HEAD AND NECK: Unremarkable. LUNGS: Distant breath sounds, expiratory wheeze, very faint bilateral. [facility] [address] [address] HISTORY AND PHYSICAL Name: AILEEN GARNICA Room #: 446-P [facility].#: [id number] Admission: 01/21/17 Attend Phys: Dottie Arroyo MD Discharge: Date of : 33 Report #: [id number] HEART: Irregular. No murmur. ABDOMEN: Soft, normoactive bowel sounds. EXTREMITIES: 1+ pedal edema. NEUROLOGIC: Global strength 4/5 throughout. ASSESSMENT: 1. COPD. 2. Atrial fibrillation. 3. Chronic diastolic congestive heart failure. 4. Senile debility. PLAN: Continue medical treatment for now. Follow up on his chest x-ray. Again I have strongly recommended to him that he needs to follow recommendations at this point and pursue long term rehabilitation, so we can maintain some level of medical stability to stop the consistent return to ER hospital admissions, he will take it under consideration, but currently he has refusing this. Poor prognosis due to his underlying conditions and questionable compliance with medical recommendations. <ELECTRONICALLY SIGNED> By: Edilson Godinez MD 01/23/17 0935 1250 1340 Edilson Godinez MD /nt
--- NOTE | ~2017-01-21 | EKG ---
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: [id number] : 1935 Requested By: Dante Paz Order Number: [id number] MD: Brett Grossman Measurements Intervals [place] Rate: 64 P: 95 NM: 213 QRS: 89 QRSD: 114 T: 68 QT: 395 QTc: 408 Interpretive Statements Sinus rhythm Borderline prolonged NM interval Baseline wander in lead(s) V1 Compared to ECG 01/10/2017 00:29:51 Atrial premature complex(es) no longer present Electronically Signed On 01-22-2017 7:11:48 CDT by Brett Grossman [email or web address] <ELECTRONICALLY SIGNED> By: Brett Grossman MD, [facility] 01/22/17 0711 12 12 Brett Grossman MD, [facility] /EPI
--- NOTE | ~2017-01-21 | D ---
[facility] [place] [address] DISCHARGE SUMMARY Name: AILEEN GARNICA Room #: 446-P ADM IN M.R.#: [id number] Admission: 01/21/17 Attend Phys: Dottie Arroyo MD Discharge: Date of : 33 Report #: [id number] THIS REPORT FOR: //name// CC: Maurice Arroyo FINAL DIAGNOSES: 1. Chronic obstructive pulmonary disease exacerbation. 2. Paroxysmal atrial fibrillation. HOSPITAL COURSE: The patient was admitted with shortness of breath. He was treated with COPD exacerbation with steroids and his other home medications. He responded quickly to treatment. He has had multiple recent admissions. I spoke to him strongly, encouraged long term placement for medical stabilization. He flat out declined this; however, he said he would be willing to consider home health again this time. I reviewed his pattern of going home and then becoming weak and unable to move and then returning to the hospital rather quickly, and he has had multiple admissions. We have done everything we could do on this to get stabilization. I do not recall that he has been to the clinic since any of these discharges. Today, he seemed willing to consider a home health. PHYSICAL EXAMINATION: VITAL SIGNS: Stable. LUNGS: Clear and distant with no wheezing. HEART: Had regular sounds. ABDOMEN: Soft. EXTREMITIES: Showed no edema. DISPOSITION: He will be discharged to home with home health. Diet and activity as tolerated, resume all home medications plus dexamethasone 2 mg b.i.d. for 5 days and then 2 mg daily until he returns to the office. I have asked him to follow up with Dr. Meeahn in a week. PROGNOSIS: Poor due to his underlying lung disease. <ELECTRONICALLY SIGNED> By: Edilson Godinez MD 01/23/17 1420 1058 1111 Edilson Godinez MD /nt
[~2017-01-21 20:14] MED LIST changes: +CARVEDILOL3.125 MG PO; +LASIX 40 MG TAB40 M2 PO; +SSD CREAM 1% 5050 GM TOP; +TRAMADOL 50 MG50 MG PO
[2017-01-21 20:15] VITALS: BP 122/56
[2017-01-21 20:58] LABS: ABSOLUTE NEUTROPHILS 3.9 thou/uL (1.4-8.2); BASOPHILS 0.5 % (0.0-2.0); EOSINOPHILS 3.1 % (0.0-3.0); HEMATOCRIT 40.1 % (42.0-52.0); HEMOGLOBIN 13.6 gm/dL (14.0-18.0); LYMPHOCYTES 18.5 % (24.0-44.0); MCHC 33.9 g/dL (28.0-37.0); MCV 94.2 fL (80.0-100.0); MONOCYTES 7.4 % (1.0-8.0); PLATELET COUNT 211 thou/uL (150-400); POLYS 70.5 % (36.0-66.0); RBC 4.25 mil/uL (4.50-6.00); WBC 5.5 thou/uL (4.0-11.0)
[2017-01-21 21:01] LABS: MANUAL DIFF NO
[2017-01-21 21:09] LABS: ANION GAP 5 mmol/L (7-16); BUN 13 mg/dL (7-18); CALCIUM 9.2 mg/dL (8.5-10.1); CHLORIDE 104 mmol/L (98-107); CO2 31 mmol/L (21-32); GLUCOSE 198 mg/dL (74-106); POTASSIUM 4.3 mmol/L (3.5-5.1); SODIUM 140 mmol/L (136-145)
[2017-01-21 21:16] LABS: ALBUMIN 3.1 g/dL (3.4-5.0); ALKALINE PHOSPHATASE 86 U/L (46-116); MAGNESIUM 1.9 mg/dL (1.8-2.4); SGOT 26 U/L (15-37); SGPT 42 U/L (30-65); TOTAL BILIRUBIN 0.4 mg/dL (<0.1-1.0); TOTAL PROTEIN 6.6 g/dL (6.4-8.2); TROPONIN-I < 0.04 ng/mL (<0.04-0.07)
[2017-01-21 22:44] VITALS: BP 141/63
[2017-01-21 23:15] VITALS: BP 141/70
[2017-01-22 03:35] VITALS: BP 118/56
[2017-01-22 08:00] VITALS: BP 129/64
[2017-01-22 15:57] VITALS: BP 138/45
[2017-01-22 19:58] VITALS: BP 127/54
[2017-01-23 05:04] VITALS: BP 110/66
[2017-01-23 05:26] LABS: HEMATOCRIT 34.8 % (42.0-52.0); MCH 31.5 pg (26.0-34.0); MCHC 33.3 g/dL (28.0-37.0); MCV 94.5 fL (80.0-100.0); RBC 3.69 mil/uL (4.50-6.00); RDW 16.4 % (10.5-14.5); WBC 8.7 thou/uL (4.0-11.0)
[2017-01-23 05:28] LABS: HEMOGLOBIN 11.6 gm/dL (14.0-18.0)
[2017-01-23 05:45] LABS: CALCIUM 9.1 mg/dL (8.5-10.1); CREATININE 0.9 mg/dL (0.7-1.3); POTASSIUM 4.7 mmol/L (3.5-5.1)
[2017-01-23 09:30] VITALS: BP 110/61
[2017-01-23] MEDS ORDERED: LEVAQUIN 500 M500 M1 PO (09:36)
[2017-01-23] MEDS ORDERED: DEXAMETHASONE 22 M1 PO (09:37)
[2017-01-23] MEDS ORDERED: ACETAMINOPHEN325 M1 PO (09:37)
[2017-01-23 10:22] VITALS: BP 110/61
[2017-01-23 16:16] VITALS: BP 125/67
[2017-01-23 20:13] VITALS: BP 128/72
[2017-01-24 05:40] VITALS: BP 112/60
[2017-01-24 10:00] VITALS: BP 121/68
[2017-01-24 10:46] VITALS: BP 110/61
[2017-01-24 16:24] VITALS: BP 129/71
== END 2017-01-24 18:45 | disposition home health service (06) | DRG 190 ==
LOC: ER 20:14 → 4S 22:15 → EROBS 22:15 → 4S 22:51
PROVIDERS: Emergency Medicine; Internal Medicine Geriatric Medicine
DX: J44.0 Chronic obstructive pulmonary disease with (acute) lower respiratory infection (principal); J18.9 Pneumonia, unspecified organism; I50.32 Chronic diastolic (congestive) heart failure; E44.1 Mild protein-calorie malnutrition; J44.1 Chronic obstructive pulmonary disease with (acute) exacerbation; I48.0 Paroxysmal atrial fibrillation; R54 Age-related physical debility; Z95.5 Presence of coronary angioplasty implant and graft; Z88.0 Allergy status to penicillin; Z88.8 Allergy status to other drugs, medicaments and biological substances; Z88.6 Allergy status to analgesic agent; Z91.041 Radiographic dye allergy status; Z85.46 Personal history of malignant neoplasm of prostate; Z87.891 Personal history of nicotine dependence; Z79.899 Other long term (current) drug therapy; Z68.24 Body mass index [BMI] 24.0-24.9, adult
CPT/HCPCS: 10100

== ENCOUNTER 2017-02-07 20:03 | Emergency (ER) | payer OTHER ==
[~2017-02-07] VITALS: Ht 180.3 cm; Wt 77.1 kg
--- NOTE | ~2017-02-07 | EKG ---
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
[~2017-02-07 20:03] MED LIST changes: +ACETAMINOPHEN325 M1 PO
[2017-02-07] MEDS ORDERED: TOPROL XL25 MG PO (20:39)
[2017-02-07] MEDS ORDERED: DUONEB 2.5-0.5 M3 ML INH (20:39)
[2017-02-07] MEDS ORDERED: VENTOLIN HFA 1818 GM INH (20:39)
[2017-02-07] MEDS ORDERED: LISINOPRIL2.5 M1 PO (20:42)
[2017-02-07 21:20] LABS: ABSOLUTE NEUTROPHILS 8.1 thou/uL (1.4-8.2); BASOPHILS 0.7 % (0.0-2.0); EOSINOPHILS 0.6 % (0.0-3.0); HEMATOCRIT 35.4 % (42.0-52.0); HEMOGLOBIN 11.9 gm/dL (14.0-18.0); LYMPHOCYTES 10.7 % (24.0-44.0); MCH 31.5 pg (26.0-34.0); MCHC 33.8 g/dL (28.0-37.0); MCV 93.3 fL (80.0-100.0); MONOCYTES 6.7 % (1.0-8.0); PLATELET COUNT 183 thou/uL (150-400); POLYS 81.3 % (36.0-66.0); RBC 3.79 mil/uL (4.50-6.00); RDW 16.7 % (10.5-14.5); WBC 9.9 thou/uL (4.0-11.0)
[2017-02-07 21:25] LABS: MANUAL DIFF NO
[2017-02-07 21:30] LABS: ANION GAP 4 mmol/L (7-16); BUN 15 mg/dL (7-18); CALCIUM 9.1 mg/dL (8.5-10.1); CHLORIDE 104 mmol/L (98-107); CO2 34 mmol/L (21-32); CREATININE 0.8 mg/dL (0.7-1.3); GLUCOSE 159 mg/dL (74-106); POTASSIUM 4.6 mmol/L (3.5-5.1); SODIUM 142 mmol/L (136-145)
[2017-02-07 21:42] LABS: NT-PRO BRAIN NAT PEPTIDE 282 pg/mL (<300); TROPONIN-I < 0.04 ng/mL (<0.04-0.07)
[2017-02-07] MEDS ORDERED: LEVAQUIN 750 M750 MG PO (23:03)
[2017-02-07] MEDS ORDERED: LASIX 20 MG TAB20 MG PO (23:03)
== END 2017-02-08 00:41 | disposition home or self-care (01) ==
LOC: ER 20:03
PROVIDERS: Nurse Practitioner
DX: J44.1 Chronic obstructive pulmonary disease with (acute) exacerbation (principal); R60.9 Edema, unspecified; I10 Essential (primary) hypertension; Z88.5 Allergy status to narcotic agent; Z91.041 Radiographic dye allergy status; Z88.0 Allergy status to penicillin; Z88.6 Allergy status to analgesic agent; Z87.891 Personal history of nicotine dependence

== ENCOUNTER 2017-02-22 14:14 | Emergency (ER) | payer OTHER ==
[~2017-02-22] VITALS: Ht 180.3 cm; Wt 73.5 kg
--- NOTE | ~2017-02-22 | EKG ---
[address] [place] [address] ELECTROCARDIOGRAM REPORT Name: NAHUNAILEEN Joshi [id number] Admission: 02/22/17 Attend Phys: Discharge: 02/22/17 Date of : 33 Report #: [id number] THIS REPORT FOR: //name// [facility] ED Test Date: 2017-02-22 Test Time: 14:47:02 Pat Name: AILEEN GARNICA Department: Room: Gender: Hr Assistant: Bella Ayala : 1935 Requested By: Radhames Bacon Order Number: [id number] MD: Brett Grossman Measurements Intervals [place] Rate: 71 P: 81 LA: 200 QRS: 84 QRSD: 131 T: 62 QT: 383 QTc: 417 Interpretive Statements Sinus rhythm Right ventricular conduction delay Artifact in lead(s) I,II,III,aVR,aVL,aVF,V4,V5,V6 Compared to ECG 02/07/2017 20:32:09 No significant changes Electronically Signed On 02-24-2017 12:01:39 CDT by Brett Grossman [email or web address] <ELECTRONICALLY SIGNED> By: Brett Grossman MD, [facility] 02/24/17 1201 1447 1447 Brett Grossman MD, [facility] /EPI
[~2017-02-22 14:14] MED LIST changes: +LASIX 20 MG TAB20 MG PO; +LEVAQUIN 750 M750 MG PO; +TOPROL XL25 MG PO; +VENTOLIN HFA 1818 GM INH
[2017-02-22 14:51] LABS: HEMATOCRIT 39.4 % (42.0-52.0); MCH 31.2 pg (26.0-34.0); MCHC 32.9 g/dL (28.0-37.0); MCV 94.8 fL (80.0-100.0); RBC 4.16 mil/uL (4.50-6.00); RDW 16.9 % (10.5-14.5); WBC 7.5 thou/uL (4.0-11.0)
[2017-02-22 15:00] LABS: ANION GAP 8 mmol/L (7-16); BUN 15 mg/dL (7-18); CALCIUM 9.5 mg/dL (8.5-10.1); CHLORIDE 103 mmol/L (98-107); CO2 26 mmol/L (21-32); CREATININE 0.9 mg/dL (0.7-1.3); GLUCOSE 170 mg/dL (74-106); POTASSIUM 4.1 mmol/L (3.5-5.1); SODIUM 137 mmol/L (136-145)
[2017-02-22 15:08] LABS: TROPONIN-I < 0.04 ng/mL (<0.04-0.07)
[2017-02-22] MEDS ORDERED: DEXAMETHASONE2 MG PO (16:54)
== END 2017-02-22 16:54 | disposition home or self-care (01) ==
LOC: ER 14:14
PROVIDERS: Emergency Medicine
DX: J44.1 Chronic obstructive pulmonary disease with (acute) exacerbation (principal); I11.0 Hypertensive heart disease with heart failure; I50.9 Heart failure, unspecified; I48.91 Unspecified atrial fibrillation; Z85.46 Personal history of malignant neoplasm of prostate; Z88.5 Allergy status to narcotic agent; Z91.041 Radiographic dye allergy status; Z88.0 Allergy status to penicillin; Z88.6 Allergy status to analgesic agent; Z87.891 Personal history of nicotine dependence

== ENCOUNTER 2017-03-23 21:35 | Inpatient (IN) | payer OTHER ==
[~2017-03-23] VITALS: Ht 180.3 cm; Wt 78.5 kg
--- NOTE | ~2017-03-23 | EKG ---
[place] [address] [employer] [address] ELECTROCARDIOGRAM REPORT Name: AILEEN GARNICA Room #: 305-P ADM IN M.R.#: [id number] Admission: 03/24/17 Attend Phys: Dottie Arroyo MD Discharge: Date of : 33 Report #: [id number] THIS REPORT FOR: //name// [facility] ED Test Date: 2017-03-23 Test Time: 21:39:35 Pat Name: AILEEN GARNICA Department: Room: [facility] Gender: M Head Resident: MYLENE Foley : 1935 Requested By: Oscar Jordan Order Number: [id number] MD: Brett Grossman Measurements Intervals [place] Rate: 80 P: 108 IN: 200 QRS: 83 QRSD: 124 T: 46 QT: 371 QTc: 428 Interpretive Statements Sinus rhythm IVCD, consider atypical RBBB Baseline wander in lead(s) V2 Compared to ECG 02/22/2017 14:47:02 No significant changes Electronically Signed On 03-25-2017 10:51:14 CDT by Brett Grossman [email or web address] <ELECTRONICALLY SIGNED> By: Brett Grossman MD, [facility] 03/25/17 1051 2139 Brett Grossman MD, [facility] /EPI
--- NOTE | ~2017-03-23 | HC ---
[facility] [place] [address] CONSULTATION Name: AILEEN GARNICA Room #: 305-P [facility] IN ..#: [id number] Admission: 03/24/17 Attend Phys: Dottie Arroyo MD Discharge: 03/28/17 Date of : 33 Report #: [id number] THIS REPORT FOR: //name// CC: Maurice Arroyo DATE OF SERVICE: 03/24/2017 REASON FOR CONSULTATION: COPD. IMPRESSION: 1. Chronic obstructive pulmonary disease. The patient stable. 2. Accelerated hypertension. 3. Acute kidney injury. 4. Chronic atrial fibrillation. PLAN: Continue home aerosol, pulmonary toilet, DVT and ulcer prophylaxis per primary. We will follow briefly. HISTORY OF PRESENT ILLNESS: An 81-year-old male comes into the hospital, had not been feeling well, presented to the emergency room with complaint of fluctuating blood pressures. He denied cough, sputum production. He has his usual shortness of breath. PAST MEDICAL HISTORY: Includes 1. COPD. 2. Prostate cancer. 3. Coronary artery disease. 4. Chronic atrial fibrillation. 5. Chronic hypoxia. PAST SURGICAL HISTORY: Surgeries in the past include prostate and sinus. ALLERGIES: CODEINE, IODINE, PENICILLIN, and PREDNISONE. He believes he can take Solu-Medrol. MEDICATIONS: Include rivaroxaban, tramadol, Flonase, Lasix, Tylenol, guaifenesin, albuterol, Atrovent, lisinopril. SOCIAL HISTORY: Positive tobacco and oxygen dependent, quit smoking over a year ago. Negative ETOH abuse. REVIEW OF SYSTEMS: Positive for CHF. No nausea or vomiting. Did have episodes of feeling poorly and lightheaded. No hemoptysis, hematemesis, hematuria. No dysuria, no abdominal pain. [facility] [address] [place] [address] CONSULTATION Name: AILEEN GARNICA Room #: 305-P [facility] IN [facility].#: [id number] Admission: 03/24/17 Attend Phys: Dottie Arroyo MD Discharge: 03/28/17 Date of : 33 Report #: [id number] PHYSICAL EXAMINATION: VITAL SIGNS: Temperature 98.3, pulse 69, respirations 16, BP 108/67. EYES: Negative icterus. NECK: Negative JVD. LUNGS: Showed decreased breath sounds. No wheeze. HEART: Regular. ABDOMEN: Bowel sounds present. EXTREMITIES: Showed no edema. Chest x-ray showed no acute. LABORATORY DATA: A pH of 7.46, pCO2 of 41, pO2 of 40 on 4 liters. White count 7.7, hemoglobin 12.7, platelets 234. INR 1.4, BUN 23, creatinine 2.2. Lactate was 4, lactate this morning was 3.4. We will follow closely with you. I agree with hydration. <ELECTRONICALLY SIGNED> By: Ira Mendoza MD 04/02/17 1511 1535 193 Ira Mendoza MD /tan
--- NOTE | ~2017-03-23 | D ---
[facility] [place] [address] DISCHARGE SUMMARY Name: AILEEN GARNICA Room #: 305-P [facility] IN M.R.#: [id number] Admission: 03/24/17 Attend Phys: Dottie Arroyo MD Discharge: 03/28/17 Date of : 33 Report #: [id number] THIS REPORT FOR: //name// CC: Maurice Arroyo FINAL DIAGNOSES: 1. Chronic obstructive pulmonary disease exacerbation. 2. Atrial fibrillation. HOSPITAL COURSE: The patient was admitted with shortness of breath. He was treated for COPD exacerbation with steroids, nebulized treatments and antibiotic. Other home medications were continued. He had some mild prerenal status on his kidney function and was treated with IV fluids, which improved. He was treated for sinusitis as well with decongestion. PHYSICAL EXAMINATION: VITAL SIGNS: On the day of discharge, he was awake and alert, eating lunch. VITAL SIGNS: He was on 4 liters nasal cannula, which was his baseline with sats 95-97%. LUNGS: Distant, but clear with no wheezing. HEART: Irregular. No murmur. ABDOMEN: Soft, normoactive bowel sounds. EXTREMITIES: No edema. DISPOSITION: He will be discharged to home with home health. Diet and activity as tolerated. Resume all home medications plus dexamethasone 2 mg daily, pseudoephedrine 30 mg t.i.d., Ceftin for 5 days and follow up with Dr. Meehan as needed. <ELECTRONICALLY SIGNED> By: Edilson Godinez MD 03/30/17 0839 1241 1259 Edilson Godinez MD /nt
--- NOTE | ~2017-03-23 | H ---
[facility] [place] [address] HISTORY AND PHYSICAL Name: AILEEN GARNICA Room #: 305-P [facility] IN M.R.#: [id number] Admission: 03/24/17 Attend Phys: Dottie Arroyo MD Discharge: 03/28/17 Date of : 33 Report #: [id number] THIS REPORT FOR: //name// CC: Gerazoya Meehan Dottie Arroyo DATE OF SERVICE: 03/24/2017 ATTENDING PHYSICIAN: Dottie Arroyo MD. CHIEF COMPLAINT: Not feeling well and noticed that his blood pressure was staying elevated. HISTORY OF PRESENT ILLNESS: The patient is an 81-year-old gentleman with known history of hypertension and chronic atrial fibrillation, on Xarelto. The patient was noted to have fluctuating blood pressure. He presented to the emergency room and did complain of having some chest congestion. He was evaluated and noted to have elevated creatinine. The patient has been admitted to the hospital, started on IV fluids, and the labs from this morning are pending. PAST MEDICAL HISTORY: Significant for history of hypertension, chronic obstructive pulmonary disease, chronic hypoxia, atrial fibrillation, coronary artery disease with history of congestive heart failure, and prostate carcinoma. PAST SURGICAL HISTORY: Prostate surgery and sinus surgery. ALLERGIES: He is known to be allergic to CODEINE, IODINE, PENICILLIN, AND PREDNISONE. MEDICATIONS: Medications he was currently on were rivaroxaban 20 mg daily, tramadol 50 mg every 8 hours p.r.n., Flonase nasal spray, Coreg 3.125 mg twice a day, Lasix 40 mg p.r.n., Tylenol p.r.n., guaifenesin, albuterol and Atrovent inhaler 4 times a day, and lisinopril 2.5 mg daily. SOCIAL HISTORY: The patient lives alone and has been managing on his own. REVIEW OF SYSTEMS: The patient does report that he had a recent hospitalization at [facility] for congestive heart failure and was given steroids. He denied having any chest pain. No nausea or vomiting. No abdominal pain or any urinary symptoms. PHYSICAL EXAMINATION: GENERAL: Pleasant, elderly gentleman, who was sitting by the bedside, did not appear to be in any acute distress. He was awake, alert, oriented to place and person. He was using oxygen per nasal cannula. [address] [address] HISTORY AND PHYSICAL Name: AILEEN GARNICA Room #: [address] [place] [address].#: [id number] Admission: 03/24/17 Attend Phys: Dottie Arroyo MD Discharge: 03/28/17 Date of : 33 Report #: [id number] VITAL SIGNS: He was afebrile, his pulse was 76 per minute and irregular, respiratory rate of 16, and blood pressure was 110/70. HEENT: Skull was atraumatic. There was no pallor. No icterus. Mucosa was minimally dry. NECK: Supple. LUNGS: Clear to auscultation with no wheezing or crackles. There was diminished air entry bilaterally. HEART: First and second heart sound, which was irregular. There was no gallop. ABDOMEN: Soft, nontender. Bowel sounds normally heard. EXTREMITIES: Examination of the extremities did not reveal any edema. NEUROLOGIC: The patient was moving all 4 extremities equally and normally. There was no focal weakness noted. LABORATORY DATA: Labs on admission showed a pH of 7.4, pCO2 of 40, and pO2 of 40. Sodium was 142, potassium 4.4, chloride of 100, bicarbonate of 34, BUN of 23, creatinine of 2.2, and glucose was 189. Lactic acid was 4. Magnesium was 1.7. White cell count was 7.7, hemoglobin 12.7, hematocrit 38.1, and a platelet count of 234. Blood cultures were negative. ASSESSMENT: 1. Chronic obstructive pulmonary disease exacerbation. 2. Acute kidney injury, suspect secondary to dehydration. 3. Hypertension. 4. Chronic atrial fibrillation. 5. History of congestive heart failure. PLAN: The plan was to restart his home medications and continue on the IV fluids. We will hold the Lasix and check his lab work, BMP from this morning and a BMP for tomorrow. Continue the patient on his blood pressure medications, monitor his blood pressure closely, and increase activity as tolerated. <ELECTRONICALLY SIGNED> By: Dottie Arroyo MD 03/30/17 0946 0807 1035 Dottie Arroyo MD /nt
[~2017-03-23 21:35] MED LIST changes: +DEXAMETHASONE2 MG PO
[2017-03-23 21:36] VITALS: BP 91/57
[2017-03-23 23:06] LABS: ABSOLUTE NEUTROPHILS 5.9 thou/uL (1.4-8.2); BASOPHILS 0.5 % (0.0-2.0); EOSINOPHILS 1.6 % (0.0-3.0); HEMATOCRIT 38.1 % (42.0-52.0); HEMOGLOBIN 12.7 gm/dL (14.0-18.0); LYMPHOCYTES 12.8 % (24.0-44.0); MCH 31.9 pg (26.0-34.0); MCHC 33.4 g/dL (28.0-37.0); MCV 95.7 fL (80.0-100.0); MONOCYTES 8.3 % (1.0-8.0); PLATELET COUNT 234 thou/uL (150-400); POLYS 76.8 % (36.0-66.0); RBC 3.98 mil/uL (4.50-6.00); RDW 17.1 % (10.5-14.5); WBC 7.7 thou/uL (4.0-11.0)
[2017-03-23 23:09] LABS: ABG SAMPLE TYPE ARTERIAL; BE(vivo) 4.3 mmol/L (-2 to +3); HCO3 28.5 mmol/L (22.0-26.0); O2(CT) 14.1 mL/dL (15.0-23.0); PCO2 40.9 mmHg (35.0-45.0); pH 7.461 (7.360-7.450); sO2 78.5 % (92.0-98.0); tCO2 29.8 mmol/L (24.0-30.0)
[2017-03-23 23:10] LABS: PO2 40.4 mmHg (80.0-100.0); STICK SITE R.RADIAL
[2017-03-23 23:12] LABS: MANUAL DIFF NO
[2017-03-23 23:20] LABS: APTT 33.4 Seconds (24.5-32.8); CREATININE 2.2 mg/dL (0.7-1.3); INR 1.4; POTASSIUM 4.4 mmol/L (3.5-5.1); PROTIME 13.8 Seconds (9.3-11.4)
[2017-03-23 23:31] LABS: ALBUMIN 3.5 g/dL (3.4-5.0); MAGNESIUM 1.7 mg/dL (1.8-2.4); TOTAL BILIRUBIN 0.4 mg/dL (<0.1-1.0); TOTAL PROTEIN 7.6 g/dL (6.4-8.2); TROPONIN-I 0.04 ng/mL (<0.04-0.07)
[2017-03-24] VITALS (7 sets, daily range): BP systolic 104–132; BP diastolic 37–71
[2017-03-24] MEDS ORDERED: MUCUS ER600 M1 PO (02:27)
[2017-03-24 08:16] LABS: CREATININE 1.7 mg/dL (0.7-1.3); POTASSIUM 4.7 mmol/L (3.5-5.1)
[2017-03-25 03:25] VITALS: BP 121/73
[2017-03-25 07:35] LABS: HEMATOCRIT 30.9 % (42.0-52.0); MCH 32.1 pg (26.0-34.0); MCHC 33.6 g/dL (28.0-37.0); MCV 95.8 fL (80.0-100.0); PLATELET COUNT 188 thou/uL (150-400); RBC 3.23 mil/uL (4.50-6.00); RDW 16.4 % (10.5-14.5); WBC 8.3 thou/uL (4.0-11.0)
[2017-03-25 07:40] LABS: HEMOGLOBIN 10.4 gm/dL (14.0-18.0); MANUAL DIFF YES
[2017-03-25 07:50] LABS: CALCIUM 8.7 mg/dL (8.5-10.1); CREATININE 0.8 mg/dL (0.7-1.3); POTASSIUM 4.3 mmol/L (3.5-5.1)
[2017-03-25 08:10] VITALS: BP 104/53
[2017-03-25 10:03] LABS: ABSOLUTE NEUTROPHILS 7.5 thou/uL (1.4-8.2); TOTAL CELL COUNT 100
[2017-03-25 10:04] LABS: ANISOCYTOSIS 1+; POLYCHROMASIA OCCASIONAL
[2017-03-25 15:55] VITALS: BP 111/59
[2017-03-25 19:09] VITALS: BP 138/70
[2017-03-26 03:46] VITALS: BP 121/63
[2017-03-26 07:13] VITALS: BP 118/71
[2017-03-26 15:41] VITALS: BP 127/62
[2017-03-26 19:50] VITALS: BP 99/58
[2017-03-27 04:10] VITALS: BP 114/64
[2017-03-27 07:59] VITALS: BP 97/73
[2017-03-27 16:00] VITALS: BP 116/60
[2017-03-27 19:19] VITALS: BP 111/54
[2017-03-28 03:15] VITALS: BP 110/53
[2017-03-28] MEDS ORDERED: CEFUROXIME500 MG PO (12:23)
[2017-03-28] MEDS ORDERED: SUDOGEST30 MG PO (12:23)
[2017-03-28] MEDS ORDERED: DEXAMETHASONE 22 M1 PO (12:24)
[2017-03-28] MEDS ORDERED: NYSTATIN 1100000 U/M SW&SWALLOW (12:25)
[2017-03-28 12:48] VITALS: BP 138/71
[2017-03-28 14:28] VITALS: BP 138/71
== END 2017-03-28 16:59 | disposition home health service (06) | DRG 682 ==
LOC: ER 21:35 → 3N 03-24 00:13 → EROBS 03-24 00:13 → 3N 03-24 02:01
PROVIDERS: Emergency Medicine; Internal Medicine
DX: N17.0 Acute kidney failure with tubular necrosis (principal); J96.20 Acute and chronic respiratory failure, unspecified whether with hypoxia or hypercapnia; J44.1 Chronic obstructive pulmonary disease with (acute) exacerbation; E86.0 Dehydration; I11.0 Hypertensive heart disease with heart failure; I48.2 Chronic atrial fibrillation; I50.9 Heart failure, unspecified; R73.9 Hyperglycemia, unspecified; J32.9 Chronic sinusitis, unspecified; I25.10 Atherosclerotic heart disease of native coronary artery without angina pectoris; Z85.46 Personal history of malignant neoplasm of prostate; Z95.5 Presence of coronary angioplasty implant and graft; Z87.891 Personal history of nicotine dependence; Z79.01 Long term (current) use of anticoagulants; Z79.899 Other long term (current) drug therapy; Z99.81 Dependence on supplemental oxygen; Z88.8 Allergy status to other drugs, medicaments and biological substances; Z88.0 Allergy status to penicillin; Z91.041 Radiographic dye allergy status
CPT/HCPCS: 10096

== ENCOUNTER 2017-04-03 13:45 | Inpatient (IN) | payer OTHER ==
[~2017-04-03] VITALS: Ht 180.3 cm; Wt 76.7 kg
--- NOTE | ~2017-04-03 | EKG ---
[place] [address] 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: ILIANA : 1935 Requested By: Emerald Fan Order Number: [id number] MD: Brett Grossman Measurements Intervals [place] Rate: 154 P: [place]: QRS: 121 QRSD: 106 T: -54 QT: 290 QTc: 464 Interpretive Statements Atrial fibrillation with rapid V-rate Premature ventricular or aberrantly conducted supraventricular complexes baseline wander in lead(s) Compared to ECG 03/23/2017 21:39:35 Atrial fibrillation has replaced sinus rhythm Electronically Signed On 04-04-2017 18:17:06 CDT by Brett Grossman [email or web address] <ELECTRONICALLY SIGNED> By: Brett Grossman MD, [facility] 04/04/17 1817 1345 1345 Brett Grossman MD, [facility] /EPI
--- NOTE | ~2017-04-03 | 2DMMODE ---
[facility] [address] [place] [address] 2 D/M-MODE ECHOCARDIOGRAM Name: AILEEN GARNICA Room #: 217-P [facility] IN .R.#: [id number] Admission: 04/03/17 Attend Phys: Linwood Quezada Discharge: Date of : 31 Date of Service: 04/04/17 1414 Report #: [id number] THIS REPORT FOR: //name// APPROVED REPORT Study performed: 04/04/2017 10:39:28 EXAM: Comprehensive 2D, Doppler, and color-flow Echocardiogram Patient Location: Echo lab Room #: 217 Status: routine Other Information Study Quality: Adequate Indications Atrial Fibrillation Hx COPD, CAD, CHF 2D Dimensions RVDd: 37.07 mm LVEF(%): 68.57 (>50%) IVSd: 11.23 (7-11mm) LVOT Diam: 21.19 (18-24mm) LVDd: 44.22 mm PWd: 9.70 (7-11mm) LVDs: 27.35 (25-40mm) Aortic Root: 36.87 mm Arriola's LVEF: 68.57 % Volumes Left Atrial Volume (Systole) Single Plane 4CH: 44.64 mL Single Plane 2CH: 81.56 mL LA ESV Index: 39.00 mL/m2 Aortic Valve AoV Peak Melo.: 3.18 m/s AO Peak Gr.: 40.34 mmHg LVOT Max P.80 mmHg AO Mean Gr.: 22.84 mmHg AO V2 Mean: 2.32 m/s LVOT Max V: 1.20 m/s AO V2 VTI: 68.47 cm EVA Vmax: 1.34 cm2 Mitral Valve E/A Ratio: 0.7 MV Decel. Time: 181.07 ms MV E Max Melo.: 0.72 m/s [facility] [place] [address] 2 D/M-MODE ECHOCARDIOGRAM Name: NAHUNAILEEN Joshi Room #: 217-P [facility] IN .R.#: [id number] Admission: 04/03/17 Attend Phys: Linwood Quezada Discharge: Date of : 31 Date of Service: 04/04/17 1414 Report #: [id number] MV A Melo.: 1.08 m/s MV PHT: 52.51 ms IVRT: 110.73 ms Pulmonary Valve PV Peak Melo.: 1.19 m/s PV Peak Gr.: 5.69 mmHg Tricuspid Valve TR Peak Melo.: 2.88 m/s RAP Estimate: 5.00 mmHg TR Peak Gr.: 33.12 mmHg PA Pressure: 38.00 mmHg Left Ventricle The left ventricle is normal size. Borderline concentric left ventricular hypertrophy. The left ventricular systolic function is normal. The left ventricular ejection fraction is within the normal range. LVEF is 60-65%. Grade I - abnormal relaxation pattern. Right Ventricle The right ventricle is normal size. The right ventricular systolic function is normal. Atria Left atrium is dilated. The right atrium size is normal. Aortic Valve Aortic valve is calcified. Mild aortic regurgitation. There is moderate valvular aortic stenosis. Calculated aortic valve area is 1.3 cm2 with maximum pressure gradient of 40 mmHg and mean pressure gradient of 23 mmHg. Mitral Valve Mitral valve leaflets are calcified. Trace mitral regurgitation. No evidence of mitral valve stenosis. Tricuspid Valve The tricuspid valve is normal in structure. There is mild to moderate tricuspid regurgitation. The right atrial pressure is estimated at 5 mmHg. There is mild pulmonary hypertension with an estimated PAP of 38 mmHg. Pulmonic Valve The pulmonary valve is normal in structure. Trace pulmonic regurgitation. [employer] [address] [address] 2 D/M-MODE ECHOCARDIOGRAM Name: AILEEN GARNICA Room #: 217-P [facility] IN .R.#: [id number] Admission: 04/03/17 Attend Phys: Linwood Quezada Discharge: Date of : 31 Date of Service: 04/04/17 1414 Report #: [id number] Aortic root is dilated. IVC is normal in size and collapses >50% with inspiration. Pericardium There is no pericardial effusion. <Conclusion> The left ventricle is normal size. LVEF is 60-65%. Aortic valve is calcified. Mild aortic regurgitation. There is moderate valvular aortic stenosis. Calculated aortic valve area is 1.3 cm2 with maximum pressure gradient of 40 mmHg and mean pressure gradient of 23 mmHg. Vmax: 2.4 m/s Mitral valve leaflets are calcified. Trace mitral regurgitation. The tricuspid valve is normal in structure. There is mild to moderate tricuspid regurgitation. The right atrial pressure is estimated at 5 mmHg. There is mild pulmonary hypertension with an estimated PAP of 38 mmHg. Aortic root is dilated. <ELECTRONICALLY SIGNED> By: Rich Riley MD 04/04/17 1414 1414 1414 Rich Riley MD /INF
--- NOTE | ~2017-04-03 | EKG ---
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: : [id number] Requested By: Bridgette Spaulding Order Number: [id number] MD: Brett Grossman Measurements Intervals [place] Rate: 73 P: 74 CA: 231 QRS: 82 QRSD: 107 T: 72 QT: 421 QTc: 464 Interpretive Statements Sinus rhythm Prolonged CA interval Compared to ECG 03/23/2017 21:39:35 Sinus rhythm has replaced atrial fibrillation Electronically Signed On 04-04-2017 18:26:40 CDT by Brett Grossman [email or web address] <ELECTRONICALLY SIGNED> By: Brett Grossman MD, [facility] 04/04/17 [phone] Brtet Grossman MD, FACC /EPI
--- NOTE | ~2017-04-03 | D ---
[facility] [place] [address] DISCHARGE SUMMARY Name: AILEEN GARNICA Room #: 217-P [place] IN M.R.#: [id number] Admission: 04/03/17 Attend Phys: Edilson Godinez MD Discharge: Date of : 31 Report #: [id number] THIS REPORT FOR: //name// CC: Maurice Godinez FINAL DIAGNOSES: 1. Atrial fibrillation with rapid ventricular response. 2. Chronic obstructive pulmonary disease exacerbation. HOSPITAL COURSE: The patient was again admitted with palpitations and shortness of breath and found to have rapid atrial fibrillation and he was treated conservatively. He had pulmonary exacerbation, which was treated with nebulized treatments in addition of low dose steroids. Empiric antibiotics were added as well. He again declined post-acute care and wished to discharge home. PHYSICAL EXAMINATION: GENERAL: On the day of discharge, he was awake and alert with a congested cough. VITAL SIGNS: Stable. LUNGS: Distant breath sounds, but no wheezing. HEART: Irregular. No murmur. ABDOMEN: Soft, normoactive bowel sounds. EXTREMITIES: No edema. DISPOSITION: To be discharged to home with home health. Diet and activity as tolerated, 3-4 liters nasal cannula oxygen and follow up with Dr. Meehan in 1-2 weeks. I have signed his discharge medications. We will continue Zithromax for 14 days. <ELECTRONICALLY SIGNED> By: Edilson Godinez MD 04/09/17 1213 [id number] [id number] MD muna Quezada
--- NOTE | ~2017-04-03 | H ---
[facility] [place] [address] HISTORY AND PHYSICAL Name: AILEEN GARNICA Room #: 217-P [facility] IN M.R.#: [id number] Admission: 04/03/17 Attend Phys: Edilson Godinez MD Discharge: Date of : 31 Report #: [id number] THIS REPORT FOR: //name// CC: Maurice Godinez DATE OF SERVICE: 04/03/2017 CHIEF COMPLAINT: Shortness of breath. HISTORY OF PRESENT ILLNESS: The patient is an 81-year-old gentleman, he is well known to the hospital with COPD. He returned to the emergency room with shortness of breath. He said this morning he just could not breathe and he took 3 nebulized treatments followed by treatment with what sounds to be Mucomyst. He said none of that helped and then he felt some palpation. Upon presentation to ER, he was noted to be tachycardic with a heart rate of 150. He does have a history of atrial fibrillation for which he takes Xarelto and Coreg. He normally wears 3-4 liters of oxygen at home. He has had multiple admissions in the last 3-4 months to the hospital. General, he refuses home health, care home or LTAC consideration. PAST MEDICAL HISTORY: COPD, 4 liters of oxygen; remote history of prostate cancer, coronary artery disease with cardiac stents in 2004 and 2007, hypertension, atrial fibrillation, and diastolic congestive heart failure. PAST SURGICAL HISTORY: Unknown. FAMILY HISTORY: Noncontributory. SOCIAL HISTORY: He lives with his son, remote smoking, but none currently. No alcohol use. ALLERGIES: CODEINE, IODINE, PENICILLIN, and PREDNISONE. MEDICATIONS: Xarelto 20 mg, tramadol, Flonase, Coreg 3.125 mg b.i.d., dexamethasone 2 mg, pseudoephedrine, Tylenol, and he completed a course of Ceftin. REVIEW OF SYSTEMS: He denies headache, chest pain, abdominal pain, nausea, vomiting, diarrhea, constipation, dysuria, or syncope. OBJECTIVE: VITAL SIGNS: Temperature 36.8, pulse 96, respirations 24, and blood pressure 121/80. GENERAL: He is awake and alert, in no distress. HEAD AND NECK: Unremarkable. [facility] [address] [place] [address] HISTORY AND PHYSICAL Name: AILEEN GARNICA Room #: 217-P [facility] IN [facility].#: [id number] Admission: 04/03/17 Attend Phys: Edilson Godinez MD Discharge: Date of : 31 Report #: [id number] LUNGS: Distant breath sounds, but clear. No wheezing. HEART: Irregular. No murmur. ABDOMEN: Soft. Normoactive bowel sounds. EXTREMITIES: No edema. NEUROLOGIC: Motor strength 4/5 throughout. LAB AND X-RAY DATA: Reviewed. ASSESSMENT: 1. Atrial fibrillation with rapid ventricular response. 2. Chronic obstructive pulmonary disease. 3. Chronic diastolic congestive heart failure. 4. Senile debility. PLAN: He is admitted to telemetry, anticoagulation with Xarelto. We will continue for DVT prophylaxis. I will switch him to Xopenex for nebulized treatments and discontinue the pseudoephedrine. The cardiology service will review his antiarrhythmic treatment. <ELECTRONICALLY SIGNED> By: Edilson Godinez MD 04/04/17 1313 [id number] [id number] Edilson Godinez MD /nt
[~2017-04-03 13:45] MED LIST changes: +CEFUROXIME500 MG PO; +MUCUS ER600 M1 PO; +NYSTATIN 1100000 U/M SW&SWALLOW; +SUDOGEST30 MG PO
[2017-04-03 13:52] VITALS: BP 88/61
[2017-04-03 14:05] LABS: ABSOLUTE NEUTROPHILS 7.5 thou/uL (1.4-8.2); BASOPHILS 0.6 % (0.0-2.0); HEMATOCRIT 38.3 % (42.0-52.0); HEMOGLOBIN 12.6 gm/dL (14.0-18.0); LYMPHOCYTES 14.7 % (24.0-44.0); MCH 31.9 pg (26.0-34.0); MCV 96.8 fL (80.0-100.0); MONOCYTES 9.4 % (1.0-8.0); PLATELET COUNT 233 thou/uL (150-400); POLYS 74.3 % (36.0-66.0); RBC 3.96 mil/uL (4.50-6.00); RDW 16.9 % (10.5-14.5)
[2017-04-03 14:06] LABS: MANUAL DIFF NO
[2017-04-03 14:08] LABS: CALCIUM 9.5 mg/dL (8.5-10.1); CREATININE 1.4 mg/dL (0.7-1.3); POTASSIUM 3.9 mmol/L (3.5-5.1)
[2017-04-03 14:38] LABS: ABG SAMPLE TYPE ARTERIAL; HCO3 29.8 mmol/L (22.0-26.0); LACTATE 1.82 mmol/L (0.5-2.0); O2(CT) 16.7 mL/dL (15.0-23.0); O2Hb 96.1 % (92.0-98.0); PCO2 40.2 mmHg (35.0-45.0); PO2 96.3 mmHg (80.0-100.0); STICK SITE R.RADIAL; pH 7.488 (7.360-7.450); sO2 97.8 % (92.0-98.0)
[2017-04-03 16:00] VITALS: BP 121/80
[2017-04-03 20:46] VITALS: BP 98/49
[2017-04-03 23:44] VITALS: BP 103/50
[2017-04-04 03:36] VITALS: BP 108/59
[2017-04-04 07:34] VITALS: BP 108/66
[2017-04-04 15:32] VITALS: BP 110/53
[2017-04-04 20:46] VITALS: BP 130/82
[2017-04-05 03:52] VITALS: BP 140/72
[2017-04-05 07:30] VITALS: BP 136/78
[2017-04-05 09:45] LABS: CALCIUM 9.5 mg/dL (8.5-10.1); POTASSIUM 4.5 mmol/L (3.5-5.1)
[2017-04-05 12:05] VITALS: BP 110/57
[2017-04-05 12:06] VITALS: BP 136/78
[2017-04-05 16:00] VITALS: BP 140/77
[2017-04-05 19:26] VITALS: BP 115/62
[2017-04-06 03:58] VITALS: BP 153/81
[2017-04-06 07:45] VITALS: BP 117/61
[2017-04-06 11:35] VITALS: BP 109/52
[2017-04-06 14:49] VITALS: BP 136/78
[2017-04-06 16:15] VITALS: BP 131/69
[2017-04-06 19:47] VITALS: BP 134/61
[2017-04-07 04:38] VITALS: BP 102/42
[2017-04-07 09:00] VITALS: BP 123/66
[2017-04-07 12:06] VITALS: BP 149/78
[2017-04-07 17:13] VITALS: BP 153/80
[2017-04-07 19:33] VITALS: BP 140/79
[2017-04-08 03:31] VITALS: BP 148/86
[2017-04-08 12:00] VITALS: BP 158/78
[2017-04-08 15:40] VITALS: BP 150/80
[2017-04-08 19:05] VITALS: BP 134/66
[2017-04-09 04:18] VITALS: BP 149/73
[2017-04-09] MEDS ORDERED: AZITHROMYCIN 2250 MG PO (08:49)
[2017-04-09] MEDS ORDERED: LIPITOR 20 MG T20 M1 PO (08:50)
[2017-04-09] MEDS ORDERED: DEXAMETHASONE 22 M1 PO (08:50)
[2017-04-09 09:05] VITALS: BP 145/71
[2017-04-09 10:19] VITALS: BP 136/78
[2017-04-09 10:33] VITALS: BP 136/78
[2017-04-09 16:27] VITALS: BP 136/78
== END 2017-04-09 20:35 | disposition home health service (06) | DRG 189 ==
LOC: ER 13:45 → EROBS 14:39 → 2N 14:39
PROVIDERS: Emergency Medicine; Nurse Practitioner Adult Health
DX: J96.20 Acute and chronic respiratory failure, unspecified whether with hypoxia or hypercapnia (principal); J44.1 Chronic obstructive pulmonary disease with (acute) exacerbation; I50.32 Chronic diastolic (congestive) heart failure; I11.0 Hypertensive heart disease with heart failure; I95.9 Hypotension, unspecified; I25.10 Atherosclerotic heart disease of native coronary artery without angina pectoris; R54 Age-related physical debility; E78.00 Pure hypercholesterolemia, unspecified; I48.0 Paroxysmal atrial fibrillation; E78.5 Hyperlipidemia, unspecified; M19.90 Unspecified osteoarthritis, unspecified site; Z85.46 Personal history of malignant neoplasm of prostate; Z95.5 Presence of coronary angioplasty implant and graft; Z79.899 Other long term (current) drug therapy; Z88.0 Allergy status to penicillin; Z88.8 Allergy status to other drugs, medicaments and biological substances; Z88.6 Allergy status to analgesic agent; Z91.041 Radiographic dye allergy status; Z87.891 Personal history of nicotine dependence; Z99.81 Dependence on supplemental oxygen
CPT/HCPCS: 10081